=== PATIENT | female | born 1940 | race Caucasian/White ===

== ENCOUNTER 2021-10-29 05:55 | Day surgery (SDC) | payer MEDICARE ==
[~2021-10-29] VITALS: Ht 165.1 cm; Wt 81.8 kg
[~2021-10-29 05:55] MED LIST: HYDROCHLOROTHIA25 MG PO; LISINOPRIL20 MG PO; METOPROLOL TAR100 MG PO; SIMVASTATIN20 MG PO
[2021-10-29] MEDS ORDERED: ASPIRIN EC325 MG PO (06:19)
[2021-10-29] MEDS ORDERED: AMLODIPINE BESYL5 MG PO (06:20)
--- NOTE | 2021-10-29 08:07 | NUR ---
PT IS ALERT,AND TOLD ME SHE "CAN'T HEAR A THING". HER FIRST SCOPE, DON HERE. GAVE COMFORT AND SUPPORT, HE WILL REMAIN FOR DC. HE WILL WAIT IN QUIET RM. WILL FOLLOW
--- NOTE | 2021-10-29 08:19 | NUR ---
10/29/21 0819 Sheets,Faith 0802 PT ARRIVED TO PACU ON 6L VIA MASK, PT ASLEEP AND VSS. RESP EVEN AND UNLABORED. 0810 PT WAKES TO TACTILE STIMULI AND O2 MASK REMOVED. PT DENIES PAIN AND NAUSEA AND REPORT "GOOD SLEEP" 0817 PT ROLLED TO BACK AND PT "I CAN'T HEAR ANYTHING" BASELINE FOR PT. RN USES NOTE PAD TO TALK TO PT. MD AT BEDSIDE.
--- NOTE | 2021-10-29 09:13 | NUR ---
0830 PATIENT BACK FROM PACU. PATIENT ALERT AND ORIENTED. BREATHING EQUAL AND UNLABORED. OXYGEN SATURATIONS ABOVE 95% ON ROOM AIR. IVF INFUSING. PATIENT DENIES ANY PAIN OR NAUSEA. 0835 PATIENT UP TO RESTROOM. VOIDED. TOLERATED AMBULATION WELL. 0845 HEAD ANIMAL TRAINER IN TO GIVE INSTRUCTIONS ON IV CONTRAST. 0850 GASTROGRAFIN GIVEN TO PATIENT 15 MLS PO WITH JUICE. MEDICATION UNABLE TO SCAN. PHARMACY NOTIFIED. PATIENT LAYING IN BED TALKING TO . NO QUESTIONS AT THIS TIME. CALL LIGHT WITHIN REACH NO FUTHER NEEDS. 0910 PATIENT DISCHARGED FROM SURGICAL SERVICES. PATIENT AWAITING CT SCAN AND REST OF IV CONTRAST. DISCHARGE INSTRUCTIONS GIVEN AND UNDERSTOOD. NO QUESTIONS AT THIS TIME. CALL LIGHT WITHIN REACH NO FUTHER NEEDS.
--- NOTE | 2021-10-29 11:28 | OR ---
[facility] [address], [place] [address] Signed DATE OF OPERATION: 10/29/2021 SURGEON: Flora Navarrete MD PREOPERATIVE DIAGNOSES: 1. Mother with colon cancer age 87. 2. Brother with colon cancer in his 60s. 3. Change in bowel habits with increasing constipation. POSTOPERATIVE DIAGNOSES: 1. Moderate sigmoid diverticulosis. 2. Colonic obstruction at 30 cm. 3. 4 mm rectal polyps x2 at 8 cm. PROCEDURE: Limited colonoscopy without biopsy up to 30 cm. ESTIMATED BLOOD LOSS: None. INDICATIONS: Mamie is an 81-year-old female, who is a diet-controlled diabetic. 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 She has never had a previous colonoscopy. She maintains excellent functional status and good muscle mass. Her mother was diagnosed and of colon cancer at age 87. Her brother was diagnosed with colon cancer in his mid 60s. She thinks her last guaiac test was in 2012. More recently, she has had a change in bowel habits with worsening constipation in the last several months. She said some of her bowel movements seemed to be fine, but other seemed to be difficult to pass. She has tried stool softeners, but does not like to take medications. She is not using a fiber product. 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 She had a free muscle flap performed along with a tracheostomy and a gastrostomy tube in 2008. The gastrostomy tube became loose and had to be repaired. She has also had a previous cholecystectomy and a hysterectomy. She seems to have recovered nicely from her surgery. She has had a previous MN and a stroke. I had met with Mamie and her in the office. We had a long discussion regarding the above. I gave them a booklet on colonoscopy. We reviewed the nature of that test. There is risk including, but not limited to gas bloating, crampy abdominal pain, bleeding, perforation requiring surgery, and missed diagnosis. We also discussed the need for monitored anesthesia care given her history as reviewed above. They had expressed understanding and wished to proceed. Electronically Signed By: FLORA NAVARRETE MD 10/29/21 1128 PATIENT NAME: MAMIE TREJO OPERATIVE REPORT DATE OF : 40 REPORT #: [id number] PHYSICIAN: FLORA NAVARRETE MD PCP: MEHDI PATRICIA MD REPORT IS CONFIDENTIAL AND NOT TO BE RELEASED WITHOUT AUTHORIZATION [facility] [address], [place] [address] Signed PROCEDURE NOTE: Mamie was taken into our endoscopy suite and placed in the left lateral decubitus position. She was given monitored anesthesia care per our nurse ambulance mechanic to include propofol. A digital rectal exam was performed. She had good sphincter tone. There were no external hemorrhoids. No masses. The adult colonoscope had been introduced and advanced carefully up to 30 cm in her sigmoid colon. We can see she has moderate sigmoid diverticulosis. We spent quite a bit of time in this area and we were never able to pass the scope any further. The mucosa appears healthy. I did not see any obvious tumor. It is a little high to be scar tissue from hysterectomy. It is concerning for either diverticular disease or a tumor. Consequently, we had contacted our radiology department. There is no radiologist in our hospital today on Monday. This is an [id number] issue and therefore we are going to proceed with a CT scan of the abdomen and pelvis with IV and p.o. contrast this morning. We will keep her here until our remote radiologist has read that report and we will proceed based on those results. RECOMMENDATIONS: Mamie has an obstruction of her sigmoid colon at 30 cm. We are going to proceed with a CT scan of the abdomen and pelvis as described above. Flora Navarrete MD ALB/MODL /[id number] cc: MD Mehdi Bear MD Copies: FLORA NAVARRETE MD, RUSSELL BARR MD ~ Electronically Signed By: FLORA NAVARRETE MD 10/29/21 1128 PATIENT NAME: MAMIE TREJO OPERATIVE REPORT DATE OF : 40 REPORT #: [id number] PHYSICIAN: FLORA NAVARRETE MD PCP: MEHDI PATRICIA MD REPORT IS CONFIDENTIAL AND NOT TO BE RELEASED WITHOUT AUTHORIZATION
== END 2021-10-29 11:00 | disposition home or self-care (01) ==
LOC: DS 05:55 → OPS 05:55 → DS 10:15 → OPS 10:15
PROVIDERS: ATTEND Colon & Rectal Surgery
PROC: 0DJD8ZZ Inspection of Lower Intestinal Tract, Via Natural or Artificial Opening Endoscopic (ICD-10-PCS; principal; 2021-10-29 07:30)
DX: K62.1 Rectal polyp (principal); K59.00 Constipation, unspecified; E11.9 Type 2 diabetes mellitus without complications; Z80.0 Family history of malignant neoplasm of digestive organs; I25.2 Old myocardial infarction; I25.10 Atherosclerotic heart disease of native coronary artery without angina pectoris; I10 Essential (primary) hypertension; E78.5 Hyperlipidemia, unspecified; Z88.0 Allergy status to penicillin; I63.9 Cerebral infarction, unspecified; K57.30 Diverticulosis of large intestine without perforation or abscess without bleeding; K56.609 Unspecified intestinal obstruction, unspecified as to partial versus complete obstruction
CPT/HCPCS: 71260; 74177; J2704; J7121